=== PATIENT | male | born 1945 | race Caucasian/White ===

== ENCOUNTER 2020-07-16 23:25 | Emergency (ER) | payer MEDICARE, BC ==
[2020-07-17 00:24] LABS: #Basophils 0.2 thou/uL (0.0-0.2); #Eosinphils 0.8 thou/uL (0.0-0.7); #Lymphocytes 4.1 thou/uL (1.20-3.40); #Monocytes 1.1 thou/uL (0.11-0.59); #Neutrophils 5.6 thou/uL (1.40-6.50); %Basophils 1.5 % (0.0-1.0); %Lymphocytes 34.6 % (21.0-51.0); %Monocytes 9.4 % (0.0-10.0); %Neutrophils 47.4 % (42.0-75.0); Hemoglobin 15.2 g/dL (14.0-18.0); Mean Corpuscular HGB CONC 34.2 g/dL (32.0-36.0); Mean Corpuscular Hemoglobin 31.1 pg (27.0-31.0); Mean Corpuscular Volume 90.8 fL (78.0-98.0); Mean Platelet Volume 7.9 fL (7.4-10.4); Platelet Count 273 thou/uL (130-400); RBC Distribution Width 12.8 % (11.5-14.5); Red Blood Cell (RBC) Count 4.88 mill/uL (4.70-6.10); White Blood Cell (WBC) Count 11.7 thou/uL (4.8-10.8)
[2020-07-17 00:45] LABS: ALT (SGPT) 32 U/L (8-55); AST (SGOT) 24 U/L (5-34); Alkaline Phosphatase 85 U/L (40-110); Anion Gap 14 mmol/L (10-20); BUN (Urea Nitrogen) 19 mg/dL (8.4-25.7); Bilirubin, Total 0.4 mg/dL (0.2-1.2); Calc. Creatinine Clearance 0 mL/min (70-130); Calcium 9.2 mg/dL (7.8-10.44); Carbon Dioxide 23 mmol/L (23-31); Chloride 105 mmol/L (98-107); Globulin 3.2 g/dL (2.4-3.5); Glucose 101 mg/dL (83-110); Potassium 4.7 mmol/L (3.5-5.1); Protein, Total 7.2 g/dL (5.8-8.1); Sodium 137 mmol/L (136-145)
[2020-07-17 03:40] LABS: Troponin I 0.024 ng/mL (< 0.028)
--- NOTE | 2020-07-17 07:35 | RAD ---
XR Chest 1 View Portable History: Elevated blood pressure Comparison: Radiograph 2016 Findings: Lungs are clear. No pneumothorax. No effusion. Cardiac silhouette and mediastinal contours are within normal limits. Old right midclavicular fracture. No acute osseous abnormality. Impression: No acute intrathoracic abnormality.
== END 2020-07-17 04:05 | disposition home or self-care (01) ==
LOC: ERS 23:25
DX: I10 Essential (primary) hypertension (principal); Z79.82 Long term (current) use of aspirin; Z79.899 Other long term (current) drug therapy
CPT/HCPCS: 36415; 71045; 80053; 84484; 85025; 93005; 94760